=== PATIENT | male | born 1935 | race Caucasian/White ===

== ENCOUNTER → 2016-05-08 | Outpatient (CLI) | payer MEDICARE, OTHER ==
[~2016-05-08] MED LIST: ALLEGRA180 MG PO; ASCORBIC ACID500 MG PO; COREG6.25 MG PO; CPAP INH; ENTRESTO 24 MG1 EACH PO; ENTRESTO 97 MG1 EACH PO; FISH OIL1000 MG PO; LASIX40 MG PO; PRAVACHOL40 MG PO; SYNTHROID50 MCG PO; TYLENOL ARTHRI650 MG PO; TYLENOL EXTRA500 MG PO; ULTRAM50 MG PO; XARELTO15 MG PO; ZYLOPRIM300 MG PO
== END | disposition disaster alternative care site (69) ==
LOC: LNHI 14:21
DX: I50.20 Unspecified systolic (congestive) heart failure (principal)

== ENCOUNTER → 2016-06-10 | Outpatient (CLI) | payer MEDICARE, OTHER ==
--- NOTE | ~2016-06-10 | PUL ---
PATIENT'S NAME: SAWYER LEWIS [facility] AGE: 80 Y [address] ROOM: [place] [id number] LOCATION: [facility] [place] ADMIT DATE: 06/10/2016 Pulmonary DISCHARGE DATE: FAMILY PHYSICIAN: SUE KAUR MD ATTENDING PHYSICIAN: Elisabet Melton NAME OF PROCEDURE: Sleep study PROCEDURE DATE: 06/10/16 TECH: DUSTY Saenz TEST #: SD# [id number] TECHNICAL PARAMETERS: The patient was studied using International 10/20 measuring system. While the patient was studied, there was continuous monitoring of EEG (8 leads), EOG (2 leads), EKG (3 leads), submental EMG (3 leads), tibial (4 leads), respiratory inductive plethysmography (RIP) for thoracic and abdominal effort, oral and nasal airflow with a thermocouple and pressure transducer, and oximetry. The central processing technician also performed visual and auditory observations noting things like body position, patient's status, breath sounds, artifact, snoring level and patient comments. Continuous sound was monitored using a 2-way speaker system and video monitoring was performed using an infrared camera. Review of the entire study was performed epoch by epoch utilizing a single epoch and multiple epoch capability sleep system. MEDICAL HISTORY: Patient is a 80-year-old overweight gentleman with a history of daytime sleepiness and snoring. SLEEP STAGE SUMMARY: The patient was studied for 505 minutes of which he slept 345 minutes. He fell asleep in 25 minutes and slept for 68% of the night. Sleep architecture revealed a decline in slow wave sleep. RESPIRATORY SUMMARY: Oxygen saturations ranged from 90%-96%. This study was done to titrate CPAP which was initiated at 10 cm and titrated to 16 cm with good control of the respiratory events. EKG SUMMARY: Average heart rate 78 beats per minute. LIMB MOVEMENT SUMMARY: Periodic limb movements were noted. Clinical significance is unclear. Limb movement index was 90 events per hour. Limb movement with arousal was 7.5 events per hour. SUMMARY: 1. Obstructive sleep apnea responsive to CPAP at 16 cm. PATIENT'S NAME: SAWYER LEWIS [facility] AGE: 80 Y [address] ROOM: [place] [address] LOCATION: [facility] [place] ADMIT DATE: 06/10/2016 Pulmonary DISCHARGE DATE: FAMILY PHYSICIAN: SUE KAUR MD ATTENDING PHYSICIAN: Elisabet Melton 2. Probable periodic limb movement disorder. PLAN: Patient receive results from the ordering provider. MD TORRIE BROWNING/ /[id number] dtt: 06/29/16 0739 , Darren Castorena. dtd: 06/12/16 1221
== END | disposition disaster alternative care site (69) ==
LOC: GSLP 20:24
DX: G47.33 Obstructive sleep apnea (adult) (pediatric) (principal)

== ENCOUNTER → 2016-09-24 | Outpatient (CLI) | payer MEDICARE, OTHER ==
[2016-09-24 17:04] LABS: ANION GAP 11.9 (10.0-19.0); CALCIUM 9.1 mg/dL (8.5-10.5); CREATININE 1.5 mg/dL (0.6-1.3); POTASSIUM 3.9 mMol/L (3.7-5.1)
== END ==
LOC: LNHI 16:36
PROVIDERS: Internal Medicine Cardiovascular Disease
DX: I48.2 Chronic atrial fibrillation (principal); I25.5 Ischemic cardiomyopathy; I50.22 Chronic systolic (congestive) heart failure